=== PATIENT | female | born 1960 | race Caucasian/White ===

== ENCOUNTER → 2022-02-22 | Outpatient (CLI) | payer OTHER ==
[~2022-02-22] MED LIST: ASPI81CH PO; ATOR40TA PO; CEPH500 PO; CITA20 PO; CLON.5 PO; CYCL10 PO; DIAZ5 PO; DOCU100 PO; GABA300 PO; LEVFLO250 PO; LOSA25 PO; METO25ER PO; MSM; ONDA8ODT MM; OSTEO BIFLEX; OXYC30ER PO; OXYC5 PO; POTCHL20ER PO; PROM25 PO; PROMETH-CODEIN 65 ML PO; XARELTO20 MG PO
[2022-02-22 12:21] LABS: BASOPHILS ABSOLUTE AUTO 0.08 K/mm3 (0.00-0.23); BASOPHILS PERCENT AUTO 1 % (0-2); EOSINOPHILS ABSOLUTE AUTO 0.26 K/mm3 (0.00-0.68); EOSINOPHILS PERCENT AUTO 3 % (0-6); Hemoglobin 13.5 g/dL (11.5-16.0); IMMATURE GRAN ABSOLUTE AUTO 0.02 K/mm3 (0.00-0.10); IMMATURE GRAN PERCENT AUTO 0 % (0-1); LYMPHOCYTES PERCENT AUTO 27 % (21-46); MONOCYTES ABSOLUTE AUTO 0.61 K/mm3 (0.16-1.47); MONOCYTES PERCENT AUTO 7 % (4-13); Mean Corpuscular HGB 30.2 pg (26.0-34.0); Mean Corpuscular HGB Conc 32.9 g/dL (31.5-36.5); Mean Corpuscular Volume 92 fL (80-100); Mean Platelet Volume 12.2 fL (9.1-12.4); NEUTROPHILS ABSOLUTE AUTO 5.16 K/mm3 (1.96-9.15); NEUTROPHILS PERCENT AUTO 61 % (41-73); Platelet Count 203 K/mm3 (150-400); RDW Coefficient Variation 13.6 % (11.7-14.2); RDW Standard Deviation 45.7 fL (35.1-46.3); Red Blood Cell Count 4.47 M/mm3 (3.80-5.20); White Blood Cell Count 8.43 K/mm3 (4.00-11.30)
[2022-02-22 12:43] LABS: Alanine Aminotransfer (ALT/SGP 28 U/L (12-78); Albumin, Blood 3.3 g/dL (3.4-5.0); Albumin/Globulin Ratio 0.7 (0.8-1.8); Alk Phos 95 U/L (50-136); Anion Gap 7 mmol/L (6-16); Aspartate Aminotrans (AST/SGOT 28 U/L (12-37); Bilirubin, Total 0.5 mg/dL (0.1-1.0); Blood Urea Nitrogen 18 mg/dL (8-24); Bun/Creatinine Ratio 19.7 (12.0-20.0); CO2, Blood 26 mmol/L (21-32); Calcium, Blood 9.3 mg/dL (8.5-10.1); Chloride, Blood 106 mmol/L (98-108); Creatinine, Blood 0.91 mg/dL (0.40-1.00); Globulin, Blood 4.5 g/dL (2.2-4.0); Glomerular Filtration Rate >60 (60-); Glucose, Blood 127 mg/dL (70-99); Potassium, Blood 4.1 mmol/L (3.5-5.5); Sodium, Blood 139 mmol/L (136-145); Total Protein, Blood 7.8 g/dL (6.4-8.2)
== END | disposition home or self-care (01) ==
LOC: LAB SHORT 10:35 → LAB FUT 05-22 12:40
PROVIDERS: Internal Medicine Hematology & Oncology
DX: C34.90 Malignant neoplasm of unspecified part of unspecified bronchus or lung (principal)
CPT/HCPCS: 36415; 80053; 85025

== ENCOUNTER 2023-09-19 15:47 | Emergency (ER) | payer OTHER ==
[~2023-09-19] VITALS: Ht 157.5 cm; Wt 72.6 kg
[2023-09-19] MEDS ORDERED: BUSPIRONE HCL7.5 M1 PO (19:31)
[2023-09-19] MEDS ORDERED: LISI5 PO (19:31)
[2023-09-19] MEDS ORDERED: MIDO5 PO (19:31)
[2023-09-19] MEDS ORDERED: OXYB5 PO (19:32)
[2023-09-19] MEDS ORDERED: LORA10ER PO (19:32)
[2023-09-19] MEDS ORDERED: ALBU90OI (19:32)
[2023-09-19] MEDS ORDERED: Vibramycin100 MG PO (20:06)
[2023-09-19 20:11] VITALS: BP 115/79
== END 2023-09-19 20:15 | disposition home or self-care (01) ==
LOC: ER 15:47
DX: R91.1 Solitary pulmonary nodule (principal); J98.4 Other disorders of lung; Z85.118 Personal history of other malignant neoplasm of bronchus and lung; Z87.891 Personal history of nicotine dependence; Z79.82 Long term (current) use of aspirin; Z79.2 Long term (current) use of antibiotics; Z79.01 Long term (current) use of anticoagulants; Z79.899 Other long term (current) drug therapy; Z88.0 Allergy status to penicillin; Z91.048 Other nonmedicinal substance allergy status; J84.10 Pulmonary fibrosis, unspecified; J43.9 Emphysema, unspecified; K76.0 Fatty (change of) liver, not elsewhere classified; I25.10 Atherosclerotic heart disease of native coronary artery without angina pectoris; R91.8 Other nonspecific abnormal finding of lung field; N28.89 Other specified disorders of kidney and ureter; M50.30 Other cervical disc degeneration, unspecified cervical region; M47.812 Spondylosis without myelopathy or radiculopathy, cervical region; J18.1 Lobar pneumonia, unspecified organism; E89.6 Postprocedural adrenocortical (-medullary) hypofunction; Z95.1 Presence of aortocoronary bypass graft; N18.2 Chronic kidney disease, stage 2 (mild); D63.1 Anemia in chronic kidney disease; N25.81 Secondary hyperparathyroidism of renal origin; E55.9 Vitamin D deficiency, unspecified; E78.00 Pure hypercholesterolemia, unspecified; R76.9 Abnormal immunological finding in serum, unspecified; R94.5 Abnormal results of liver function studies; R94.6 Abnormal results of thyroid function studies
CPT/HCPCS: 36415; 71250; 80053; 82248; 84100; 85025; 85610; 85730; 87070; 87205; 99283; A9270

== ENCOUNTER → 2024-05-06 | Outpatient (CLI) | payer OTHER ==
[~2024-05-06] MED LIST changes: +ALBU90OI; +ALBUTEROL0.63 MG/3 IH; +ANORO ELLIPTA1 EAC1 INH; +BUSPIRONE HCL7.5 M1 PO; +CARVEDILOL6.25 MG PO; +CENTRUM WOMEN1 EAC2 PO; +DOXY100 PO; +FUROSEMIDE20 MG PO; +LACT PO; +LISI5 PO; +LORA10ER PO; +MIDO5 PO; +OXYB5 PO; +Vibramycin100 MG PO
[2024-05-06 12:27] LABS: BASOPHILS ABSOLUTE AUTO 0.07 K/mm3 (0.00-0.23); BASOPHILS PERCENT AUTO 1 % (0-2); EOSINOPHILS ABSOLUTE AUTO 0.23 K/mm3 (0.00-0.68); EOSINOPHILS PERCENT AUTO 2 % (0-6); Hematocrit 39.1 % (33.0-51.0); Hemoglobin 13.1 g/dL (11.5-16.0); IMMATURE GRAN ABSOLUTE AUTO 0.01 K/mm3 (0.00-0.10); IMMATURE GRAN PERCENT AUTO 0 % (0-1); LYMPHOCYTES ABSOLUTE AUTO 1.97 K/mm3 (0.84-5.20); LYMPHOCYTES PERCENT AUTO 20 % (21-46); MONOCYTES ABSOLUTE AUTO 0.82 K/mm3 (0.16-1.47); MONOCYTES PERCENT AUTO 8 % (4-13); Mean Corpuscular HGB 29.4 pg (26.0-34.0); Mean Corpuscular HGB Conc 33.5 g/dL (31.5-36.5); Mean Corpuscular Volume 88 fL (80-100); Mean Platelet Volume 9.1 fL (9.1-12.4); NEUTROPHILS ABSOLUTE AUTO 6.79 K/mm3 (1.96-9.15); NEUTROPHILS PERCENT AUTO 69 % (41-73); Platelet Count 401 K/mm3 (150-400); RDW Coefficient Variation 13.4 % (11.7-14.2); RDW Standard Deviation 42.7 fL (35.1-46.3); Red Blood Cell Count 4.46 M/mm3 (3.80-5.20); White Blood Cell Count 9.89 K/mm3 (4.00-11.30)
[2024-05-06 12:39] LABS: Albumin, Blood 2.8 g/dL (3.4-5.0); Albumin/Globulin Ratio 0.5 (0.8-1.8); Bilirubin, Total 0.7 mg/dL (0.1-1.0); Bun/Creatinine Ratio 12.1 (12.0-20.0); Calcium, Blood 9.2 mg/dL (8.5-10.1); Creatinine, Blood 1.16 mg/dL (0.40-1.00); Globulin, Blood 5.4 g/dL (2.2-4.0); Potassium, Blood 3.6 mmol/L (3.5-5.5); Total Protein, Blood 8.2 g/dL (6.4-8.2)
== END | disposition home or self-care (01) ==
LOC: LAB 12:24 → LAB SHORT 12:24
PROVIDERS: Physician Assistant
DX: R06.00 Dyspnea, unspecified (principal)
CPT/HCPCS: 80053; 83880; 84484; 85025

== ENCOUNTER 2024-05-25 03:21 | Inpatient (IN) | payer OTHER ==
[~2024-05-25] VITALS: Ht 157.5 cm; Wt 68.2 kg
[2024-05-25 03:37] LABS: BASOPHILS ABSOLUTE AUTO 0.07 K/mm3 (0.00-0.23); BASOPHILS PERCENT AUTO 1 % (0-2); EOSINOPHILS ABSOLUTE AUTO 0.33 K/mm3 (0.00-0.68); EOSINOPHILS PERCENT AUTO 3 % (0-6); Hemoglobin 12.5 g/dL (11.5-16.0); IMMATURE GRAN ABSOLUTE AUTO 0.03 K/mm3 (0.00-0.10); IMMATURE GRAN PERCENT AUTO 0 % (0-1); LYMPHOCYTES ABSOLUTE AUTO 1.79 K/mm3 (0.84-5.20); LYMPHOCYTES PERCENT AUTO 18 % (21-46); MONOCYTES ABSOLUTE AUTO 0.76 K/mm3 (0.16-1.47); MONOCYTES PERCENT AUTO 8 % (4-13); Mean Corpuscular HGB 28.7 pg (26.0-34.0); Mean Corpuscular HGB Conc 32.9 g/dL (31.5-36.5); Mean Corpuscular Volume 87 fL (80-100); NEUTROPHILS ABSOLUTE AUTO 7.06 K/mm3 (1.96-9.15); NEUTROPHILS PERCENT AUTO 70 % (41-73); Platelet Count 452 K/mm3 (150-400); RDW Coefficient Variation 14.4 % (11.7-14.2); RDW Standard Deviation 45.9 fL (35.1-46.3); Red Blood Cell Count 4.35 M/mm3 (3.80-5.20); White Blood Cell Count 10.04 K/mm3 (4.00-11.30)
[2024-05-25] MEDS ORDERED: Ipratropium/Albuterol SulF 2.5-0.5MG/3 ML Amp INH ONE (03:40)
[2024-05-25 03:59] LABS: Albumin, Blood 2.6 g/dL (3.4-5.0); Albumin/Globulin Ratio 0.6 (0.8-1.8); Bilirubin, Total 1.3 mg/dL (0.1-1.0); Bun/Creatinine Ratio 24.3 (12.0-20.0); Calcium, Blood 9.5 mg/dL (8.5-10.1); Creatinine, Blood 1.4 mg/dL (0.40-1.00); Globulin, Blood 4.7 g/dL (2.2-4.0); Magnesium, Blood 2.3 mg/dL (1.6-2.4); Potassium, Blood 4.2 mmol/L (3.5-5.5); Total Protein, Blood 7.3 g/dL (6.4-8.2)
[2024-05-25 04:09] LABS: pH Blood Venous 7.34 (7.34-7.37)
[2024-05-25 04:10] LABS: Base Excess Venous 7.2 mmol/L; Bicarbonate Venous 28.8 mmol/L (24.0-30.0); PCO2 Venous 61.1 mmHg (38-42)
[2024-05-25] MEDS ORDERED: Ipratropium/Albuterol SulF 2.5-0.5MG/3 ML Amp INH SCH (05:45)
[2024-05-25] MEDS ORDERED: Azithromycin 500 MG in NS 250 ML IV SCH (06:00)
[2024-05-25] MEDS ORDERED: Carvedilol 3.125 MG Tab PO SCH (08:00)
[2024-05-25] MEDS ORDERED: Furosemide 10 MG/ML 4ML Vial IV SCH (09:00)
[2024-05-25] MEDS ORDERED: Enoxaparin 40 MG/0.4 ML SYR SC SCH (09:00)
[2024-05-25] MEDS ORDERED: CefTRIAXone Sodium 1,000 MG in NS 100 ML IV SCH (09:00)
[2024-05-25] MEDS ORDERED: Lactobacil 2-S.Thermo-Bifido 1 1 Cap PO SCH (09:00)
[2024-05-25] MEDS ORDERED: Atorvastatin 40 MG Tab PO SCH (09:00)
[2024-05-25 15:18] VITALS: BP 110/86
--- NOTE | 2024-05-25 17:04 | NUR ---
PHOTOS TAKEN OF COCCYX/BUTTOX WOUND. MEPILEX PLACED, DR. CEBALLOS NOTIFIED.
[2024-05-25] MEDS ORDERED: Albuterol HFA200 ACT/6.7 GM INH INH PRN (17:30)
[2024-05-25] MEDS ORDERED: Zinc Oxide Ointment 30 GM TOP PRN (17:40)
--- NOTE | 2024-05-25 17:56 | NUR ---
SHIFT SUMMARY; ASSUMED CARE FROM ER FOR ADMIT. SLID FROM GURNEY TO BED, PT STATES HAS BEEN UN ABLE TO TRANSFER NORMAL DUE TO WEAKNESS. WHEELCHAIR AT BASELINE PER FAMILY. A/A/OX3, PRAIRIE BAND. 4L 02 VIA NC, L/S MOIST T/O. BREATHING TREATMENTS BY RT PER ORDERS. FAMILY REPORTS NEW DX OF A MASS IN THROAT AND WILL BE SEEING DR. WILSON. STATES DR. WILSON SAID NEEDS TO GET OVER "THIS PNUEMONIA" TO START TREATMENT. PURWICK IN PLACE, MOVES ALL FOUR EXTREMETIES. WILL CONTINUE TO MONITOR AND TREAT UNTIL CHANGE OF SHIFT.
[2024-05-25] MEDS ORDERED: Albumin (Human) 25gm/100ml 100 ML IV SCH (18:00)
[2024-05-25 20:08] VITALS: BP 92/57
[2024-05-25] MEDS ORDERED: Midodrine 2.5 MG Tab PO SCH (21:00)
[2024-05-25 23:46] VITALS: BP 81/59
[2024-05-25] MEDS ORDERED: NS 1,000 ML IR SCH (23:55)
[2024-05-25] MEDS ORDERED: NS 1,000 ML IR ONE (23:55)
[2024-05-26] VITALS (8 sets, daily range): BP systolic 82–99; BP diastolic 52–74
[2024-05-26] MEDS ORDERED: NS 1,000 ML BAG IR ONE (00:35)
[2024-05-26] MEDS ORDERED: NS 500 ML IV ONE (00:50)
[2024-05-26 04:03] LABS: Hematocrit 34.9 % (33.0-51.0); Hemoglobin 11.4 g/dL (11.5-16.0); Mean Corpuscular HGB 28.7 pg (26.0-34.0); Mean Corpuscular HGB Conc 32.7 g/dL (31.5-36.5); Mean Corpuscular Volume 88 fL (80-100); Mean Platelet Volume 9.4 fL (9.1-12.4); Platelet Count 354 K/mm3 (150-400); RDW Coefficient Variation 14.4 % (11.7-14.2); RDW Standard Deviation 46.3 fL (35.1-46.3); Red Blood Cell Count 3.97 M/mm3 (3.80-5.20); White Blood Cell Count 10.25 K/mm3 (4.00-11.30)
[2024-05-26 04:35] LABS: Anion Gap 13 mmol/L (3-11); Blood Urea Nitrogen 25 mg/dL (8-24); Bun/Creatinine Ratio 24.8 (12.0-20.0); CO2, Blood 24 mmol/L (21-32); Calcium, Blood 8.7 mg/dL (8.5-10.1); Chloride, Blood 103 mmol/L (98-108); Creatinine, Blood 1.01 mg/dL (0.40-1.00); Glomerular Filtration Rate 63 (60-); Glucose, Blood 102 mg/dL (70-99); Phosphorus, Blood 2.9 mg/dL (2.5-4.9); Potassium, Blood 4.1 mmol/L (3.5-5.5); Sodium, Blood 136 mmol/L (136-145)
[2024-05-26 08:34] LABS: International Normalized Ratio 0.98; Prothrombin Time Results 10.5 Sec (9.7-11.5)
[2024-05-26] MEDS ORDERED: Multivitamins/Minerals TAB PO SCH (09:00)
[2024-05-26] MEDS ORDERED: Aspirin 81 MG Chew PO SCH (09:00)
[2024-05-26] MEDS ORDERED: Loratadine 10 MG Tab PO SCH (09:00)
[2024-05-26] MEDS ORDERED: oxyBUTYnin chloride 5 MG TAB PO SCH (09:00)
--- NOTE | 2024-05-26 11:54 | NUR ---
"Spiritual Care | Pt. Request Pt. is awake in bed and welcmoes my visit. Family members are at bedside. Pt. is pleasant but displays evidence of a rattle when she breaths. The Pt. is known to this sandal parts assembler from previous hosptial visits. Pt. displayed evidence of a resiliant spirit and requested that this sandal parts assembler pray for her. Prayed a prayer that has been written for her by a friend, and then also prayed my own prayers for her. Pt. verbalized gratitude for the spiritual care visit and welcomed this sandal parts assembler to return."
[2024-05-26] MEDS ORDERED: NS 1,000 ML IV SCH (13:15)
--- NOTE | 2024-05-26 18:32 | NUR ---
SHIFT SUMMARY; ASSUMED CARE AT 0700. A/A/OX4. 4L O2 VIA NC. L/S MOIST-COARSE T/O. IV ABX PER EMAR. PER RADIOLOGIST UNABLE TO TO PERFORM BIOPSY OF LUNG MASS. DR. WILSON UPDATED. BP SOFT BUT STABLE WITH MAP >60. MIDODRINE TID. FAMILY AT CAREGIVER AT BEDSIDE DURING SHIFT. REPOSITIONS SELF IN BED. ZINC TO COCCYX PER ORDERS AND NEW MEPIEX PLACED. PURWICK IN PLACE. WILL CONTINUE TO MONITOR AND TREAT UNTIL CHANGE OF SHIFT.
[2024-05-26] MEDS ORDERED: Nystatin 100,000 Unit/ML Susp 5 ML UDC PO SCH (21:00)
[2024-05-27 03:33] VITALS: BP 106/69
[2024-05-27 03:48] LABS: BASOPHILS ABSOLUTE AUTO 0.07 K/mm3 (0.00-0.23); BASOPHILS PERCENT AUTO 1 % (0-2); EOSINOPHILS ABSOLUTE AUTO 0.38 K/mm3 (0.00-0.68); EOSINOPHILS PERCENT AUTO 3 % (0-6); Hematocrit 37.9 % (33.0-51.0); Hemoglobin 12.1 g/dL (11.5-16.0); IMMATURE GRAN ABSOLUTE AUTO 0.03 K/mm3 (0.00-0.10); IMMATURE GRAN PERCENT AUTO 0 % (0-1); LYMPHOCYTES ABSOLUTE AUTO 1.63 K/mm3 (0.84-5.20); LYMPHOCYTES PERCENT AUTO 15 % (21-46); MONOCYTES ABSOLUTE AUTO 0.78 K/mm3 (0.16-1.47); MONOCYTES PERCENT AUTO 7 % (4-13); Mean Corpuscular HGB 28.6 pg (26.0-34.0); Mean Corpuscular HGB Conc 31.9 g/dL (31.5-36.5); Mean Corpuscular Volume 90 fL (80-100); Mean Platelet Volume 9.4 fL (9.1-12.4); NEUTROPHILS ABSOLUTE AUTO 8.33 K/mm3 (1.96-9.15); NEUTROPHILS PERCENT AUTO 74 % (41-73); Platelet Count 414 K/mm3 (150-400); RDW Coefficient Variation 14.6 % (11.7-14.2); RDW Standard Deviation 46.9 fL (35.1-46.3); Red Blood Cell Count 4.23 M/mm3 (3.80-5.20); White Blood Cell Count 11.22 K/mm3 (4.00-11.30)
[2024-05-27] MEDS ORDERED: Sennosides 8.6 MG Tab PO ONE (04:00)
[2024-05-27] MEDS ORDERED: Sennosides 8.6 MG Tab PO PRN (04:00)
[2024-05-27] MEDS ORDERED: Ondansetron HCl 2 MG / ML 2ML Vial IV PRN (04:00)
[2024-05-27] MEDS ORDERED: Ondansetron HCl 2 MG / ML 2ML Vial IV ONE (04:00)
[2024-05-27 04:11] LABS: Albumin, Blood 2.9 g/dL (3.4-5.0); Anion Gap 9 mmol/L (3-11); Blood Urea Nitrogen 20 mg/dL (8-24); Bun/Creatinine Ratio 19.4 (12.0-20.0); CO2, Blood 31 mmol/L (21-32); Calcium, Blood 9.1 mg/dL (8.5-10.1); Chloride, Blood 101 mmol/L (98-108); Creatinine, Blood 1.03 mg/dL (0.40-1.00); Glomerular Filtration Rate 61 (60-); Glucose, Blood 109 mg/dL (70-99); Phosphorus, Blood 2.6 mg/dL (2.5-4.9); Potassium, Blood 4.4 mmol/L (3.5-5.5); Sodium, Blood 137 mmol/L (136-145)
--- NOTE | 2024-05-27 05:13 | NUR ---
SHIFT SUMMARY PT A&O X4, ABLE TO MAKE NEEDS KNOWN. VSS, AFEBRILE, SPO2 >90% ON 3-4L NC. PT WITH COARSE CRACKLES T/O LUNGS. SHE DENIES WORSENING SOB. BP SOFT BUT MAP REMAINED >65. PO MIDODRINE ADMINISTERED PER EMAR. PW IN PLACE, DRAINING YELLOW URINE. PT HAD SOME C/O NAUSEA, ZOFRAN ADMINISTERED PER EMAR. SON AT BEDSIDE. PT IS RESTING QUIETLY, CALL LIGHT WITHIN REACH, BREATHING EVEN AND UNLABORED.
[2024-05-27 07:25] VITALS: BP 94/82
[2024-05-27] MEDS ORDERED: Multivitamins 1 Tab PO SCH (09:00)
[2024-05-27] MEDS ORDERED: Midodrine 5 MG Tab PO SCH (09:00)
[2024-05-27] MEDS ORDERED: Carvedilol 3.125 MG Tab PO SCH (09:00)
[2024-05-27 12:35] VITALS: BP 84/62
[2024-05-27 15:45] VITALS: BP 90/68
--- NOTE | 2024-05-27 18:29 | NUR ---
SHIFT SUMMARY; ASSUMED CARE AT 0700. A/A/OX4. CAREGIVERS AT BEDSIDE DURING SHIFT. REPOSITIONS SELF WITH REPOSITIONING. WHEELCHAIR AT BASELINE. REFUSES BED BATH DURING SHIFT. L/S MOIST-COARSE T/O. 4L 02 VIA NC. MEDS PER EMAR. NO ACUTE CHANGES DURING SHIFT, WILL CONTINUE TO MONITOR AND TREAT UNTIL CHANGE OF SHIFT.
[2024-05-27 19:32] VITALS: BP 101/64
--- NOTE | 2024-05-27 20:33 | NUR ---
ASSUMPTION OF CARE: RECIEVED REPORT FROM AVERY RAE AT 1900. PT ALERT AND ORIENTED. FOLLOWS COMMANDS AND MAKES NEEDS KNOWN. PT HARD TO UNDERSTAND, SPEECH IS GARGLED FROM FLUID IN UPPER LUNGS. PT VERY WHEEZY AND HAS MODERATE AMOUNT OF THICK SECRETIONS. PT ON 2L NC WITH SPO2 >92%. DENIES SOB, USING FLUTTER VALVE NEEDED. RN LACTATION IN PLACE, ST WITH HR 100'S. SBP 100'S. DENIES CHEST PAIN/PRESSURE. PT HAS PUREWICK IN PLACE, DRAINING YELLOW URINE TO SUCTION. NO BM YET. PT STATES SHE FEELS BLOATED AND CONSTIPATED. BT ACTIVE IN ALL QUADRANTS. PIV TO LFA, PATENT AND SALINE LOCKED. FAMILY AT THE BEDSIDE, UPDATED TO PLAN OF CARE. PT SHIFTING AROUND IN BED IND. BED LOW AND LOCKED, CALL LIGHT IN REACH.
[2024-05-27] MEDS ORDERED: LORazepam 2 MG/ML 1ML Injection IV ONE (21:45)
[2024-05-27] MEDS ORDERED: Scopolamine Hydrobromide Patch TOP ONE (21:45)
[2024-05-28] VITALS (7 sets, daily range): BP systolic 91–135; BP diastolic 61–105
--- NOTE | 2024-05-28 03:38 | NUR ---
UPDATE: PT SON AT THE BEDSIDE, WANTED TO HAVE DISCUSSION ABOUT CODE STATUS. PT AND SON DECIDED ON A LIMITED CODE STATUS. PT WANTS TO HAVE EVERYTHING DONE EXCEPT FOR CHEST COMPRESSIONS IF NEEDED. CALL PLACED TO DR. PALMA REGARDING PT WISHES. DR. PALMA SPOKE WITH PT AND SON AND AGREED TO CHANGE PT TO LIMITED CODE.
--- NOTE | 2024-05-28 06:26 | NUR ---
SHIFT SUMMARY: PT REMAINS ALERT AND ORIENTED. PLEASANT AND COOPERATIVE WITH CARE. FOLLOWS COMMANDS. PT A LITTLE ANXIOUS IN THE NIGHT AND STATED SHE WAS "SCARED TO ". CALL PLACED TO DR. PALMA AND ORDER WAS GIVEN FOR ONE TIME DOSE OF ATIVAN. ATIVAN GIVEN WITH GOOD RESULTS. PT MORE CALM AND HAD AN EASIER TIME BREATHING. SCOPALAMINE PATCH WAS ALSO APPLIED FOR INCREASING SECRETIONS. PT ABLE TO SLEEP AFTER ATIVAN AND APPEARED MUCH MORE COMFORTABLE. PT REMAINED ON 2L NC THROUGHOUT THE NIGHT, SPO2 >95%. LUNGS REMAIN COARSE AND WHEEZY. TURNING SANDER TENDER IN PLACE, SR WITH HR 90'S. SBP 90'S-100'S. NO C/O CHEST PAIN OR PRESSURE T/O THE NIGHT. PUREWICK IN PLACE WITH ATTENDS IN PLACE. DRAINING YELLOW/ SAM COLORED URINE. TOLERATING PO INTAKE. NO BM THIS SHIFT. PIV INTACT AND SALINE LOCKED. BED LOW AND LOCKED, CALL LIGHT IN REACH.
[2024-05-28] MEDS ORDERED: LORazepam 0.5 MG Tab PO PRN (13:10)
[2024-05-28] MEDS ORDERED: Furosemide 20 MG Tab PO SCH (14:00)
--- NOTE | 2024-05-28 17:36 | NUR ---
SHIFT SUMMARY; ASSUMED CARE AT 0700. A/A/OX4, 2L 02 VIA NC. COOPERATIVE AND ABLE TO MAKE NEEDS KNOWN. CAREGIVERS AT BESIDE MOST OF SHIFT. REFUSES REPOSITIONING FROM STAFF BUT ALLOWS CAREGIVER TO PROVIDE. MEPILEX TO COCCYX, DRY AND INTACT. PURWICK IN PLACE DRAINING TO LOW SUCTION. COARSE-WET SOUNDING WITH BREATHING, L/S DIM. AWAITING COBRA TRANSFER TO [facility] FOR BX OF LUNG MASS. VSS, NO ACUTE CHANGES DURING SHIFT. WILL CONTINUE TO MONITOR AND TREAT UNTIL CHANGE OF SHIFT.
== END 2024-05-28 22:59 | disposition short-term general hospital (02) | DRG 180 ==
LOC: ER 03:21 → ERHOLD 03:22 → PCU 15:01
PROVIDERS: Emergency Medicine; Internal Medicine; ADMIT Internal Medicine
PROC: 5A09357 Assistance with Respiratory Ventilation, Less than 24 Consecutive Hours, Continuous Positive Airway Pressure (ICD-10-PCS; principal; 2024-05-25)
DX: C34.01 Malignant neoplasm of right main bronchus (principal); J18.9 Pneumonia, unspecified organism; J96.01 Acute respiratory failure with hypoxia; J96.02 Acute respiratory failure with hypercapnia; C77.1 Secondary and unspecified malignant neoplasm of intrathoracic lymph nodes; I50.22 Chronic systolic (congestive) heart failure; J44.0 Chronic obstructive pulmonary disease with (acute) lower respiratory infection; I13.0 Hypertensive heart and chronic kidney disease with heart failure and stage 1 through stage 4 chronic kidney disease, or unspecified chronic kidney disease; Z66 Do not resuscitate; J44.1 Chronic obstructive pulmonary disease with (acute) exacerbation; N17.9 Acute kidney failure, unspecified; N18.2 Chronic kidney disease, stage 2 (mild); H91.93 Unspecified hearing loss, bilateral; I25.10 Atherosclerotic heart disease of native coronary artery without angina pectoris; Z85.118 Personal history of other malignant neoplasm of bronchus and lung; Z85.89 Personal history of malignant neoplasm of other organs and systems; Z92.3 Personal history of irradiation; Z92.21 Personal history of antineoplastic chemotherapy; Z88.0 Allergy status to penicillin; Z87.891 Personal history of nicotine dependence; Z79.82 Long term (current) use of aspirin; Z95.1 Presence of aortocoronary bypass graft
CPT/HCPCS: 36415; 71045; 80053; 80069; 82803; 83605; 83735; 83880; 84145; 84484; 85025; 85027; 85610; 85730; 93005; 93010; 94640; 94660; 94664; 94760; 94762; 96365; 96367; 96375; 97110; 97161; 99285-25; A9270; J0456; J0696; J1650; J1940; J2060; J2405; J7050; P9047